=== PATIENT | female | born 1990 | race Caucasian/White ===

== ENCOUNTER 2020-11-08 19:09 | Emergency (ER) | payer MEDICAID ==
[~2020-11-08] VITALS: Ht 170.2 cm; Wt 113.4 kg
[~2020-11-08 19:09] MED LIST: [UNRECOGNIZED DRUG - REMARK]
[2020-11-08 19:40] VITALS: BP 164/107
[2020-11-08] MEDS ORDERED: KETOROLAC TROMETH 60MG/2ML VIAL IM ONE (20:30)
[2020-11-08] MEDS ORDERED: TETANUS-DIPTH-ACEL PERTUSSIS 0.5ML SYR Tdap IM ONE (20:30)
[2020-11-08] MEDS ORDERED: NEOMYCIN-BACITRACIN-POLYM UNITDOSE PKG TOP OINT TOP ONE (20:45)
== END 2020-11-08 22:50 | disposition home or self-care (01) ==
LOC: ER 19:09
DX: S51.811A Laceration without foreign body of right forearm, initial encounter (principal); I10 Essential (primary) hypertension; J45.909 Unspecified asthma, uncomplicated; Z88.5 Allergy status to narcotic agent; W54.0XXA Bitten by dog, initial encounter; Y93.89 Activity, other specified; Y92.89 Other specified places as the place of occurrence of the external cause; Y99.8 Other external cause status
CPT/HCPCS: 12001; 73090; 90471; 90715; 96372; 99284; J1885

== ENCOUNTER 2024-06-01 08:58 | Emergency (ER) | payer MEDICAID ==
[~2024-06-01] VITALS: Ht 170.2 cm; Wt 140.8 kg
[2024-06-01 09:31] VITALS: BP 157/103; PULSE 90; RESP 18; TEMP 97.7; O2SAT 98
[2024-06-01 10:44] LABS: Chloride 107 mmol/L (98-107); Potassium 3.9 mmol/L (3.5-5.1); Sodium 140 mmol/L (136-145)
[2024-06-01 10:45] LABS: Anion Gap 8 (5-15); Calcium 9.9 mg/dL (8.7-10.4); Carbon Dioxide 25 mmol/L (20-31)
[2024-06-01 10:50] LABS: BUN/Creatinine Ratio 15.9 (10.0-20.0); Blood Urea Nitrogen 13 mg/dL (9-23); Glucose 102 mg/dL (74-106)
[2024-06-01 10:53] LABS: Basophils # (auto) 0.1 10 ^3/uL (0-0.2); Basophils % (auto) 0.6 % (0.0-2.0); Eosinophils # (auto) 0.2 10 ^3/uL (0-0.8); Eosinophils % (auto) 2.3 % (0.0-7.0); Hematocrit 47.9 % (36.0-46.0); Lymphocytes # (auto) 3.2 10 ^3/uL (0.4-5.4); Lymphocytes % (auto) 36.3 % (10.0-50.0); Mean Corpuscular Hemoglobin 31.5 pg (28.0-32.0); Mean Corpuscular Hgb Conc. 33.5 g/dL (32.0-36.0); Monocytes # (auto) 0.4 10 ^3/uL (0-1.3); Neutrophils % (auto) 56.8 % (37.0-80.0); Nucleated Red Blood Cells % 0.1 %; Platelet Count (auto) 291 10^3/uL (140-450); Red Blood Cells 5.09 10^6/uL (4.0-5.20); Red Cell Distribution Width 14.1 % (11.8-14.3); White Blood Cell 8.8 10^3/uL (4.4-10.8)
[2024-06-01] MEDS ORDERED: NAP500T PO (11:39)
[2024-06-01] MEDS: KETOROLAC TROMETH 30 MG/ML 1ML VIAL IM ONE (11:53)
== END 2024-06-01 12:00 | disposition home or self-care (01) ==
LOC: ER 08:58
DX: M79.672 Pain in left foot (principal); I10 Essential (primary) hypertension; J45.909 Unspecified asthma, uncomplicated
CPT/HCPCS: 36415; 73630; 80048; 85025; 85379; 96372; 99284; J1885

== ENCOUNTER 2024-06-03 11:44 | Emergency (ER) | payer MEDICAID ==
[~2024-06-03] VITALS: Ht 170.2 cm; Wt 141.0 kg
[~2024-06-03 11:44] MED LIST changes: +NAP500T PO
[2024-06-03] MEDS ORDERED: BACL10TA PO (13:39)
[2024-06-03] MEDS ORDERED: IBUP-1456 PO (13:39)
[2024-06-03 13:44] VITALS: BP 154/91; PULSE 81; RESP 18; TEMP 97.9; O2SAT 99
== END 2024-06-03 13:46 | disposition home or self-care (01) ==
LOC: ER 11:44
DX: M72.2 Plantar fascial fibromatosis (principal); I10 Essential (primary) hypertension; J45.909 Unspecified asthma, uncomplicated; Z79.1 Long term (current) use of non-steroidal anti-inflammatories (NSAID); Z79.899 Other long term (current) drug therapy